=== PATIENT | female | born 2000 | race African-American/Black ===

== ENCOUNTER 2020-09-24 15:50 | Emergency (ER) | payer OTHER ==
[~2020-09-24] VITALS: Ht 167.6 cm; Wt 65.8 kg
[2020-09-24] MEDS ORDERED: TESSALON PERLE100 MG PO (18:06)
[2020-09-24 18:19] VITALS: BP 121/74
== END 2020-09-24 18:19 | disposition home or self-care (01) ==
LOC: ER 15:50
DX: J06.9 Acute upper respiratory infection, unspecified (principal); Z20.822 Contact with and (suspected) exposure to COVID-19